=== PATIENT | male | born 1945 | race Caucasian/White ===

== ENCOUNTER 2018-02-23 12:18 | Inpatient (IN) | payer OTHER, MEDICARE ==
--- NOTE | 2018-02-23 12:35 | CPEKG ---
Heart Rate: 80 RR Interval: 750 QRSD Interval: 106 QT Interval: 408 QTC Interval: 471 QRS [place]: -5 T Wave [place]: 22 EKG Severity - ABNORMAL ECG - EKG Impression: A-FLUTTER W/ PREDOM 3:1 AV BLOCK, A-RATE 258 Electronically Signed By: Padmaja Melendez 23-Feb-2018 20:35:28
[2018-02-23 13:00] LABS: PLATELET COUNT 170 10^3/uL (150-400)
--- NOTE | 2018-02-23 13:13 | EDPHY ---
H & P Time Seen by Provider: 02/23/18 12:53 HPI/ROS: CHIEF COMPLAINT: Chest pain, shortness of breath HISTORY OF PRESENT ILLNESS: 72-year-old male with a history of CAD, hypertension and recent diagnosis of atrial fibrillation presents with chest pain and shortness of breath. This morning he was sitting at his computer when he developed shortness of breath and a vague chest discomfort on the left side of his chest. The symptoms persisted intermittently throughout the morning and now have completely resolved. The chest pain increased with exertion. No prior similar symptoms. He was diagnosed with atrial fibrillation on 02/12/2018 at an outside facility and placed on Eliquis and diltiazem. He has a follow-up appointment at [facility] on . He has a history of coronary artery disease and had a stent placed. The only symptom prior to stent placement was tachycardia. REVIEW OF SYSTEMS: Constitutional: No fever, no chills Eyes: No visual changes ENT: No sore throat Respiratory: No cough Gastrointestinal: No nausea, no vomiting, no abdominal pain Genitourinary: no dysuria Musculoskeletal: No leg pain or swelling Skin: No rash Neurological: No headache, no weakness Psychiatric: No anxiety Past Medical/Surgical History: Atrial fibrillation, on Eliquis Hypertension Diabetes Coronary artery disease Hyperlipidemia Social History: Lead Mobile Developer: Dr. Javier Smoking Status: Never smoked Physical Exam: General Appearance: Alert, pleasant Eyes: Pupils equal and round, no conjunctival pallor or injection ENT, Mouth: Mucous membranes moist Neck: Normal inspection Respiratory: Lungs are clear to auscultation Cardiovascular: Regular rate and rhythm, no murmur Gastrointestinal: Abdomen is soft and nontender Neurological: A&O, nonfocal exam Skin: Warm and dry, no rash Extremities: Nontender, no pedal edema Psychiatric: Flat affect Constitutional: Initial Vital Signs Temperature (C) 36.9 C 02/23/18 12:24 Heart Rate 84 02/23/18 12:24 Respiratory Rate 20 02/23/18 12:24 Blood Pressure 143/92 H 02/23/18 12:24 O2 Sat (%) 94 02/23/18 12:24 O2 Delivery Mode Nasal Cannula O2 (L/minute) 3 Allergies/Adverse Reactions: aspirin Allergy (Verified 02/23/18 12:23) GI irritation NSAIDS Allergy (Mild, Uncoded 07/21/14 13:44) Other-Enter Comments Home Medications: Medication Instructions Recorded Acetaminophen [Tylenol 325mg (*)] 325 mg PO DAILY PRN 02/23/18 Allopurinol [Allopurinol 100 MG 100 mg PO BID 02/23/18 (*)] Atorvastatin Calcium [Lipitor 20 20 mg PO DAILY18 02/23/18 mg (*)] Gemfibrozil [Lopid 600 MG (*)] 600 mg PO BIDAC 02/23/18 Multivitamins [Multivitamin (*)] 1 each PO DAILY 02/23/18 metFORMIN HCL [Glucophage 1000 mg] 1,000 mg PO BIDMEAL 02/23/18 Apixaban [Eliquis] 5 mg PO BID #60 tab 02/25/18 Losartan Potassium [Cozaar 25 mg 25 mg PO DAILY #30 tab 02/25/18 (*)] Pantoprazole Sodium [Protonix 40mg 40 mg PO DAILY #30 tab 02/25/18 (*)] Medical Decision Making - Diagnostics EKG Interpretation: EKG interpreted by me reveals atrial flutter, ventricular rate 80, no ST or T segment changes. Imaging Results: Chest X-Ray 02/23/18 12:56 Impression: Hypoventilation and minimal airways disease. No pneumonia. Imaging: I viewed and interpreted images myself ED Course/Re-evaluation: This patient presents with chest pain and shortness of breath, concerning for acute coronary syndrome in a patient with multiple risk factors. Stat EKG reveals atrial flutter, with a controlled rate and no ischemic changes. Pt asymptomatic now. Doubt PE, given anticoagulation and atypical sx. CXR reveals no evidence of pneumonia or PTX; mediastinum normal, dissection considered, but unlikely. Initial troponin normal. Pt remains asymptomatic and in atrial flutter. Will admit for further cardiac evaluation. Consider cardioversion during hospitalization. The hospitalist service was consulted for admission. Dr. Kelle Lal was consulted from [facility] and will see the patient in the hospital. Differential Diagnosis: Differential diagnosis includes though it is not limited to pneumonia, pneumothorax, pulmonary embolism, aortic dissection, pericarditis, acute coronary syndrome. - Data Points Laboratory Results: Laboratory Results 02/24/18 03:20 02/24/18 03:20 Medications Given: Discontinued Medications Allopurinol (Allopurinol) 100 mg PO BID BLAKE Stop: 08/22/18 20:59 Last Admin: 02/25/18 08:48 Dose: 100 mg Apixaban (Eliquis) 5 mg PO BID BLAKE Stop: 08/22/18 20:59 Last Admin: 02/25/18 08:47 Dose: 5 mg Apixaban (Eliquis) 5 mg PO ONCE ONE Stop: 02/24/18 13:31 Last Admin: 02/24/18 13:40 Dose: 5 mg Atorvastatin Calcium (Lipitor) 20 mg PO DAILY18 [facility] Stop: 08/22/18 17:59 Last Admin: 02/24/18 18:59 Dose: 20 mg Atropine Sulfate (Atropine 1 Mg/10 Ml Syringe) 1 mg IVP ONCALL ONE Stop: 02/23/18 18:02 Last Admin: 02/23/18 18:25 Dose: Not Given Atropine Sulfate (Atropine 1 Mg/10 Ml Syringe) 1 mg IVP ONCALL ONE Stop: 02/24/18 09:01 Last Admin: 02/24/18 12:43 Dose: Not Given Diltiazem HCl (Cardizem Immediate Release) 120 mg PO TID@0600,1400,2100 [facility] Stop: 08/22/18 15:14 Last Admin: 02/24/18 05:24 Dose: 120 mg Docusate Sodium (Colace) 100 - 200 mg PO HS PRN PRN Reason: Constipation Stop: 08/23/18 20:59 Last Admin: 02/24/18 21:16 Dose: 100 mg Gemfibrozil (Lopid) 600 mg PO BIDAC BLAKE Stop: 08/22/18 17:29 Last Admin: 02/25/18 08:48 Dose: 600 mg Sodium Chloride (Ns) 500 mls @ 0 mls/hr IV ONCALL ONE PRN Reason: TKO Stop: 02/23/18 18:02 Last Admin: 02/23/18 18:25 Dose: Not Given Sodium Chloride (Ns) 500 mls @ 0 mls/hr IV ONCALL ONE PRN Reason: TKO Stop: 02/24/18 09:01 Last Admin: 02/24/18 12:44 Dose: Not Given Dopamine HCl/Dextrose (Dopamine 1600 Mcg/Ml (Premix)) 250 mls @ 0 mls/hr IV CONT BLAKE; Titrate PRN Reason: Protocol Stop: 08/23/18 12:59 Last Admin: 02/24/18 12:58 Dose: 250 mls Insulin Human Lispro (Humalog Lispro) 0 unit SC TIDMEAL [facility] PRN Reason: Protocol Stop: 08/22/18 17:59 Last Admin: 02/25/18 08:48 Dose: 2 units Losartan Potassium (Cozaar) 25 mg PO DAILY [facility] Stop: 08/23/18 08:59 Last Admin: 02/24/18 08:32 Dose: 25 mg Metoprolol Tartrate (Lopressor) 25 mg PO BID [facility] Stop: 08/22/18 20:59 Last Admin: 02/24/18 08:31 Dose: 25 mg Multivitamins (Tab-A-Kain) 1 each PO DAILY [facility] Stop: 08/23/18 08:59 Last Admin: 02/25/18 08:48 Dose: 1 each Pantoprazole Sodium (Protonix) 40 mg PO DAILY [facility] Stop: 08/23/18 08:59 Last Admin: 02/25/18 08:48 Dose: 40 mg Departure - Departure Disposition: [facility] Inpatient Acute Clinical Impression: Chest pain Qualifiers: Chest pain type: precordial pain Qualified Code(s): R07.2 - Precordial pain Atrial flutter Qualifiers: Atrial flutter type: typical Qualified Code(s): I48.3 - Typical atrial flutter Condition: Fair
[2018-02-23] MEDS ORDERED: ACETAMINOPHEN 325 MG TAB PO PRN (14:36)
[2018-02-23] MEDS ORDERED: ONDANSETRON DISINTEGRATING 4 MG TAB PO PRN (14:36)
[2018-02-23] MEDS ORDERED: ONDANSETRON 4 MG/2 ML VIAL IVP PRN (14:36)
[2018-02-23] MEDS ORDERED: INDOMETHACIN 25 MG CAP PO PRN (14:42)
[2018-02-23] MEDS ORDERED: D50W 25 GM/50 ML SYR IVP PRN (14:47)
--- NOTE | 2018-02-23 15:29 | GHP ---
[f rep st] HISTORY AND PHYSICAL DATE OF ADMISSION: 02/23/2018 CHIEF COMPLAINT: Shortness of breath and chest pain. HISTORY OF PRESENT ILLNESS: This is a 72-year-old male with a history of coronary artery disease, as well as a recent diagnosis of aflutter, who presents with shortness of breath and chest pain. On [facility] 21, 11 days prior to presentation, he noticed that his heart rate monitor showed that his heart r ate was in the 140s. He was in [place] at that time. Because of this, he presented to the ED the re. They found him to be in aflutter. He was started on Eliquis as well as diltiazem. He had previ ously been on metoprolol, this dose was reduced. He had also been on losartan, this dose was also re duced. They did not do a cardioversion at that time. He was discharged, came home, has a followup a ppointment in [address] Conner. This morning, he noticed a dull ache in his chest when he wa s going to the bathroom. He does not describe this as pressure. It has resolved now. He also felt short of breath. He thus presented to the emergency department. He had a stent placed in 2003 for w hat he describes as tachycardia. He did not have any angina at that time. PAST MEDICAL/SURGICAL HISTORY: 1. Coronary artery disease, status post stent in 2003. 2. Hypertension. 3. Gout. 4. Prediabetes on metformin. 5. Hyperlipidemia. 6. Right TKA. 7. Bilateral rotator cuff surgery. 8. Appendectomy. MEDICATIONS: Please see medication reconciliation. ALLERGIES: To aspirin and NSAIDs although I note that he is on Indocin as needed. FAMILY HISTORY: Multiple members of his family of MIs. SOCIAL HISTORY: Drinks wine nightly. He is accompanied by his . He spent half of his time in [employer] and half in [employer] REVIEW OF SYSTEMS: A 10-point review of systems is conducted and is negative except per HPI. PHYSICAL EXAM: VITAL SIGNS: Blood pressure 138/81, heart rate 86, respiration rate 19, saturating 9 2% on room air, temperature 36.9. GENERAL: Patient is a pleasant man who is resting comfortably. N o acute distress. HEENT shows him to be normocephalic, atraumatic. CARDIOVASCULAR: Showed him to b e irregularly irregular. There are no murmurs, rubs, or gallops. PULMONARY: Lungs clear to auscult ation bilaterally. ABDOMEN: Soft, nontender, nondistended. SKIN: No rash. : No Elam. NEUROLOG IC: Shows him to be alert and oriented x3. He is moving all extremities. PSYCHIATRIC: Shows yusuf l mood and affect. LABS: CBC is normal. Basic metabolic panel is normal. Troponin is negative. BNP is 146, glucose i s 221. DATA: 1. I discussed this with Dr. Pinto. He will see the patient in consultation. 2. I personally viewed and interpreted his chest x-ray. This shows no focal infiltrates. 3. I personally viewed and interpreted his EKG. This shows atrial flutter with a 3-1 block. There a re no acute ischemic changes. IMPRESSION AND PLAN: 72-year-old man admitted with chest pain and aflutter. 1. Chest pain: Concerning for angina. He does have a new arrhythmia. Cardiology has been consulte d. Echocardiogram has been ordered. Will trend his troponins. Will monitor him on telemetry. Furt her ischemic evaluation per Cardiology. 2. Atrial flutter: He is currently rate controlled. Will continue his diltiazem, metoprolol, Eliqu is. 3. Hypertension: We will continue his antihypertensives. 4. Gout: Continue his lisinopril. 5. Prediabetes: Hold his metformin in the anticipation that he may receive contrast and start him o n sliding scale insulin. 6. Hyperlipidemia: Statin and gemfibrozil. 7. Code status is full. 8. Venous thromboembolism risk is low, we will continue his Eliquis. /[id number]/MODL
[2018-02-23] MEDS: DILTIAZEM 60 MG TAB PO SCH ×2 (15:33→21:18)
--- NOTE | 2018-02-23 16:06 | ECHO ---
[email or web address] [address] [address] Main: [phone] Fax: [email or web address] Echocardiogram Name: GEOFFREY CRUMP MR#: [id number] Study Date: 02/23/2018 Study Time: 03:05 PM Date of : 1945 Age: 72 year(s) Height: 182.9 cm (72 in.) Weight: 122.47 kg (270 lb.) BSA: 2.42 m2 Gender: Male Examination: Echo Indication: A FIB, Chest Pain Image Quality: Adequate Contrast: Requested by: Gregoria Murillo BP: 140 mmHg/96 mmHg Heart Rate: Rhythm: Atrial fibrillation Indication: A FIB, Chest Pain Procedure Staff Building Carpenter: Dahlia Weaver RDCS Reading Physician: Aba Pinto MD Requesting Provider: Conclusions: Normal size left ventricle. Low normal left ventricular systolic function. The ejection fraction is estimated to be 50-55 %. No regional wall motion abnormality. Normal RV function. The left atrium is mildly dilated. The right atrium is mildly dilated. The pulmonary artery pressure is normal. The IVC is normal sized. No pericardial effusion. Measurements: Chambers Valvular Assessment AV/MV Valvular Assessment TV/PV Normal Normal Normal Name Value Range Name Value Range Name Value Range Ao Irish (2D): 3.2 cm (1.4 cm-2.6 AV meanP mmHg ( - ) TR Vmax: 2.39 mm/s ( - ) cm) LVOT Vmax: 0.93 m/s (0.7 m/s-1.1 TR PGmax: 23 mmHg ( - ) IVSd (2D): 0.9 cm (0.6 cm-1.1 m/s) syst. PAP: 28 mmHg ( - ) cm) QUANG (VTI): 2.0 cm ( - ) PV Vmax: 1.02 m/s (0.6 m/s-0.9 LVDd (2D): 5.2 cm (4.2 cm-5.9 MV E Vmax: 0.94 m/s ( - ) m/s) cm) MV PHT: 0.053 s ( - ) PV PGmax: 4 mmHg ( - ) LVDs (2D): 3.6 cm (2.1 cm-4 MVA (PHT): 4.2 s ( - ) cm) LVPWd (2D): 1.0 cm (0.6 cm-1 cm) LVOTd 2.0 cm 2.0 cm mm LVEF (BP): 48 % (>=55 %) EF Range: 50-55 % RVDd(2D): 3.5 cm (1.9 cm-3.8 cmmm) Patient: GEOFFREY CRUMP Study Date: 02/23/2018 Page 1 of 2 03:05 PM Continued Measurements: Chambers Valvular Assessment AV/MV Valvular Assessment TV/PV Name Value Name Value Name Value LADs: 4.1 cm MV E/E' Septal: 8.50 CVP (est.): 5 mmHg LADs Lon.4 cm MV E/E' Lateral: 9.60 LA Area: 25.3 cm2 LA Volume: 91 ml LA Volume Index: 37.6 ml/m2 RA Area: 20.7 cm2 Additional Vessels Name Value Ao Ascendin.4 cm Findings: Left Ventricle: Normal size left ventricle. No LV hypertrophy. Low normal left ventricular systolic function. The ejection fraction is estimated to be 50-55 %. No regional wall motion abnormality. Unable to assess diastolic dysfunction. Right Ventricle: Normal size right ventricle. Normal RV function. Left Atrium: The left atrium is mildly dilated. Right Atrium: The right atrium is mildly dilated. Mitral Valve: The mitral valve is normal in appearance and function. Mild mitral valve regurgitation is present. No mitral stenosis is present. Aortic Valve: The aortic valve is normal in appearance and function. There is no aortic valve regurgitation. No aortic valve stenosis is present. Tricuspid Valve: The tricuspid valve is normal in appearance and function. Mild tricuspid regurgitation is present. The pulmonary artery pressure is normal. Right ventricular systolic pressure measures 28mmHg. Pulmonic Valve: The pulmonic valve is normal in appearance and function. Trivial pulmonic valve regurgitation. Aorta: The aorta is normal. Normal size aortic root measuring 3.2 cm. Normal size ascending aorta measuring 3.4 cm. IVC: The IVC is normal sized. Pericardium: No pericardial effusion. (No Signature Object) Patient: GEOFFREY CRUMP Study Date: 02/23/2018 Page 2 of 2 03:05 PM [id number]
[2018-02-23] MEDS: ATORVASTATIN CALCIUM 20 MG TAB PO SCH (17:46)
[2018-02-23] MEDS: GEMFIBROZIL 600 MG TAB PO SCH (17:46)
[2018-02-23] MEDS: INSULIN LISPRO 100 UNIT/ML SC SCH (17:47)
[2018-02-23] MEDS ORDERED: ATROPINE SULFATE 1 MG/10 ML SYR IVP ONE (18:01)
[2018-02-23] MEDS ORDERED: NS 500 ML IV ONE (18:01)
[2018-02-23 18:53] LABS: INR 1.08 (0.83-1.16); PROTIME(PATIENT) 14.2 SEC (12.0-15.0)
[2018-02-23] MEDS: METOPROLOL TARTRATE 25 MG TAB PO SCH (21:17)
[2018-02-23] MEDS: ALLOPURINOL 100 MG TAB PO SCH (21:18)
--- NOTE | 2018-02-23 22:16 | GCON ---
[f rep st] CONSULTATION CARDIOLOGY CONSULTATION. DATE OF CONSULTATION: 02/23/2018 REFERRING PHYSICIAN: Zackery Carreno MD INDICATION FOR CONSULTATION: Chest pain and atrial fibrillation. HISTORY OF PRESENT ILLNESS: The patient is a pleasant 72-year-old gentleman well known to [facility] with a known history of coronary artery disease with previous PCI to the right coronary artery in 2003, hypertension, hyperlipidemia, type 2 diabetes, sleep apnea, peptic ulcer disease, and obesity who was in his usual state of health until approximately 1 week ago while in [place] he was found to be in atrial fibrillation on February 12, 2018. He discovered he was in atrial fibrillation when his Apple watch alarmed and stated he had achieved his target heart rate for the day while at rest. He was found to be in atrial fibrillation with rates in the 120s. He had no symptoms of chest pain, chest pressure, shortness of breath, palpitations, dizziness, lightheadedness, near-syncope, or syncope associated with the onset of atrial fibrillation. He states that if it was not for his Apple watch he would have no indication that he was in atrial fibrillation. His workup at a hospital in [place] included an echocardiogram. He did not undergo cardioversion or further risk stratification for coronary artery disease , and he was discharged home on Eliquis 5 mg p.o. b.i.d. and diltiazem 120 mg once daily. Of note, his dose of diltiazem at discharge was increased from 120 mg once daily to 120 mg t.i.d. His [id number] score is 4. The patient and his returned after a 2-month trip to [place] and [place] to [place] yesterday morning at around 9:30 in the morning. He states that this morning he began to develop increased symptoms of shortness of breath and dyspnea on exertion. He also developed an atypical dull chest discomfort which he describes as a 0.5/10 left-sided discomfort that he describes as being worse with exertion, improved with rest, but also beginning initially at rest. He denied any associated nausea or vomiting. He denied complaints of palpitations, dizziness, lightheadedness, or syncope. With the onset of these symptoms, it prompted him to seek medical attention at [facility]'s Emergency Department. He was found to be in atrial fibrillation with rates ranging from 80 to low 100s. He has been compliant with diltiazem 120 mg t.i.d. and Eliquis 5 mg p.o. b.i.d. Currently, at the time of my exam, he is resting comfortably and is pain free and has no complaints of shortness of breath and in atrial fibrillation on telemetry at 82 beats per minute. He did undergo an exercise nuclear stress test on March 28, 2016. El treadmill score of 9. He had no symptoms with exertion. Nuclear images demonstrated no evidence of ischemia with normal left ventricular function. Please note that during his hospitalization in [place] his losartan/ hydrochlorothiazide was discontinued as well as his clopidogrel. His metoprolol was also decreased from 50 mg p.o. b.i.d. to 25 mg p.o. b.i.d. He denies any bleeding issues with the onset of Eliquis. He does have a history of peptic ulcer disease and GI bleeding while on aspirin in the past. REVIEW OF SYSTEMS: Otherwise negative on a 10-point review of systems other than what was noted above. PAST MEDICAL HISTORY: 1. Coronary artery disease with PCI to the RCA in 2003. No evidence of ischemia on nuclear stress test in March of 2016. 2. Hypertension. 3. Hyperlipidemia. 4. Type 2 diabetes. 5. Obstructive sleep apnea compliant with CPAP. 6. Obesity. 7. Peptic ulcer disease. PAST SURGICAL HISTORY: Appendectomy at age 14, bilateral rotator cuff surgery in 2003 with repeat surgery in 2012, and bilateral knee replacements approximately 3 years ago. MEDICATIONS ON ADMISSION: Eliquis 5 mg p.o. b.i.d.; diltiazem 120 mg p.o. t.i.d.; atorvastatin 20 mg daily; gemfibrozil 600 mg p.o. b.i.d.; metoprolol tartrate 25 mg p.o. b.i.d.; metformin 1000 mg p.o. b.i.d.; allopurinol 100 mg p.o. b.i.d.; indomethacin 25 mg p.o. daily p.r.n. gout; multivitamin; Protonix 40 mg daily. ALLERGIES: To medications aspirin and NSAIDs. SOCIAL HISTORY: He drinks approximately 2 glasses of wine per night. He is a lifelong nonsmoker. He works in the [employer] industry. He is and lives in [place]. He has just celebrated his 50th wedding anniversary with his . He has 2 children who live in the [place] area. FAMILY HISTORY: Notable for coronary artery disease. PHYSICAL EXAMINATION: VITAL SIGNS: Blood pressure 140/96, heart rate of 89 in atrial fibrillation, oxygen saturation is 92% on room air, respiratory rate of 18, temperature 37.1. GENERAL: He is awake, alert, oriented, appropriate. No apparent distress. NECK: There is no evidence of JVP or carotid bruits. LUNGS : Clear to auscultation bilaterally. CARDIAC: S1, S2. Irregularly, irregular. There is a 1/6 systolic murmur at the LV apex. The apex is not displaced. ABDOMEN: Obese, soft, nontender. Abdominal aorta is nonpalpable. EXTREMITIES: There is no evidence of cyanosis, clubbing or edema. He has 2+ dorsalis and posterior tibial pulses bilaterally. LABORATORY DATA: White blood cell count 5.35, hemoglobin 14.9, hematocrit 42.9 , platelets 170. Sodium 140, potassium 4.5, chloride 101, bicarb 25, BUN 12, creatinine 0.8, glucose 221. Troponin is less than 0.012. BNP of 146. Chest x -ray demonstrated no evidence of pneumonia. ECG demonstrated atrial fibrillation at 80 beats per minute with no evidence of ischemic changes or acute infarction. Echocardiogram demonstrates LVEF of 50% to 55% with no regional wall motion abnormality, normal right ventricular function, mild biatrial enlargement, no significant valvular disease, normal pulmonary pressures with RV systolic pressure of 28 mmHg. Previous nuclear stress test in March of 2016 with no evidence of ischemia. El treadmill score of 9. IMPRESSION: 1. Atypical chest discomfort. 2. Shortness of breath and dyspnea on exertion. 3. New diagnosis of atrial fibrillation on February 12, 2018 with [id number] score of 4. 4. Coronary artery disease with percutaneous coronary intervention to the right coronary artery in 2003. 5. Hypertension. 6. Hyperlipidemia. 7. Obstructive sleep apnea. 8. Morbid obesity. 9. Peptic ulcer disease with history of ulcer with aspirin. SUMMARY: The patient is a pleasant 72-year-old gentleman with newly diagnosed atrial fibrillation who returns to the [place] area after being away for 2 months traveling to [place] and [place] at much lower altitudes who was diagnosed with atrial fibrillation on February 12, 2018. He presented to [facility] today with complaints of shortness of breath, dyspnea on exertion, and atypical chest discomfort that was exacerbated with exertion. ECG and troponin were initially unremarkable, and he is pain free at rest with normal nuclear stress test within the last 2 years without evidence of ischemia. Of note, he does state he had a radial artery catheterization attempted from the right radial artery in 2003 which was unsuccessful secondary to his radial artery anatomy. In the absence of symptoms and relatively controlled rate of atrial fibrillation with [id number] score of 4, I would recommend he continue his Eliquis and remain on his current dose of diltiazem. I would recommend serial cardiac enzymes and keeping the patient n.p.o. after midnight tonight for possible ZAC cardioversion. If these troponins elevate, I would consider left heart catheterization. PLAN: 1. Continue diltiazem 120 mg p.o. t.i.d. 2. Continue Eliquis 5 mg p.o. b.i.d. 3. N.p.o. after midnight. 4. Serial cardiac enzymes. 5. If troponins are negative x3, plan for ZAC-guided cardioversion and outpatient further risk stratification. 6. If he does have continued chest discomfort or troponin elevation, we will consider left heart catheterization, which would require holding anticoagulation secondary to the need to perform left heart catheterization from the groin given unsuccessful attempt in the past through the radial artery. 7. We will continue to follow along with patient care. Thank you for this consultation. 45 min spent coordinating care. /[id number]/MODL PAOLA
[2018-02-23] MEDS: APIXABAN 5 MG TAB PO SCH (22:25)
[2018-02-24 04:29] LABS: PLATELET COUNT 171 10^3/uL (150-400)
[2018-02-24] MEDS: DILTIAZEM 60 MG TAB PO SCH (05:24)
[2018-02-24] MEDS: METOPROLOL TARTRATE 25 MG TAB PO SCH (08:31)
[2018-02-24] MEDS: ALLOPURINOL 100 MG TAB PO SCH ×2 (08:31→21:16)
[2018-02-24] MEDS: GEMFIBROZIL 600 MG TAB PO SCH ×2 (08:31→19:00)
[2018-02-24] MEDS: PANTOPRAZOLE SODIUM 40 MG TAB PO SCH (08:31)
[2018-02-24] MEDS: MULTIVITAMINS 1 EACH TAB PO SCH (08:32)
[2018-02-24] MEDS: INSULIN LISPRO 100 UNIT/ML SC SCH ×4 (08:32→19:00)
[2018-02-24] MEDS ORDERED: NS 500 ML IV ONE (09:00)
[2018-02-24] MEDS ORDERED: ATROPINE SULFATE 1 MG/10 ML SYR IVP ONE (09:00)
[2018-02-24] MEDS ORDERED: LOSARTAN POTASSIUM 25 MG TAB PO SCH (09:00)
--- NOTE | 2018-02-24 09:45 | PDHPUP ---
History & Physical Update H&P update statement: This history and physical update is based on an assessment of the patient which was completed after admission or registration (within 24 hours), but prior to the surgery/procedure. H&P update: H&P reviewed & patient examined, no change in patient's condition since H&P completed
[2018-02-24] MEDS ORDERED: APIXABAN 5 MG TAB ONE (10:26)
[2018-02-24] MEDS: APIXABAN 5 MG TAB PO SCH (10:28)
--- NOTE | 2018-02-24 10:39 | PDANEPAE ---
ANE Past Medical History - Pulmonary History Hx Oxygen in Use at Home: No Hx Sleep Apnea: Yes Sleep Apnea Screening Result - Last Documented: Positive - Endocrine History Hx Diabetes: Yes ANE Review of Systems Review of Systems: ANE Patient History - Allergies Allergies/Adverse Reactions: aspirin Allergy (Verified 02/23/18 12:23) GI irritation NSAIDS Allergy (Mild, Uncoded 07/21/14 13:44) Other-Enter Comments - Home Medications Home Medications: Acetaminophen [Tylenol 325mg (*)] 325 mg PO DAILY PRN 02/23/18 [Last Taken Unknown] Allopurinol [Allopurinol 100 MG (*)] 100 mg PO BID 02/23/18 [Last Taken 02/23/18 ] Apixaban [Eliquis] 5 mg PO BID 02/23/18 [Last Taken 02/23/18] Atorvastatin Calcium [Lipitor 20 mg (*)] 20 mg PO DAILY18 02/23/18 [Last Taken 02/22/18] Diltiazem [Cardizem] 120 mg PO TID@06,14,21 02/23/18 [Last Taken 02/23/18 06:00] Gemfibrozil [Lopid 600 MG (*)] 600 mg PO BIDAC 02/23/18 [Last Taken 02/23/18] Indomethacin [Indocin 25 mg (*)] 50 mg PO DAILY PRN 02/23/18 [Last Taken Unknown ] Losartan Potassium [Cozaar 25 mg (*)] 25 mg PO DAILY 02/23/18 [Last Taken ] Metoprolol Tartrate [Lopressor 25 mg (*)] 25 mg PO BID 02/23/18 [Last Taken 01/11] Multivitamins [Multivitamin (*)] 1 each PO DAILY 02/23/18 [Last Taken Unknown] Pantoprazole Sodium [Protonix 40mg (*)] 40 mg PO DAILY 02/23/18 [Last Taken 01/11] metFORMIN HCL [Glucophage 1000 mg] 1,000 mg PO BIDMEAL 02/23/18 [Last Taken 01/11] - NPO status NPO Since - Liquids (Date): 02/24/18 NPO Since - Liquids (Time): 00:00 NPO Since - Solids (Date): 02/24/18 NPO Since - Solids (Time): 00:00 - Smoking Hx Smoking Status: Never smoked ANE Labs/Vital Signs - Labs Result Diagrams: 02/24/18 03:20 02/24/18 03:20 - Vital Signs Blood Pressure: 116/87 Heart Rate: 80 Respiratory Rate: 16 O2 Sat (%): 91 Height: 182.88 cm Weight: 122.47 kg ANE Physical Exam - Airway Neck exam: FROM, increased neck circumference, short neck Mallampati Score: Class 2 - Pulmonary Pulmonary: no respiratory distress, no rales or rhonchi, clear to auscultation - Cardiovascular Cardiovascular: irregularly irregular - ASA Status ASA Status: IV ANE Anesthesia Plan Anesthesia Plan: GA with mask
[2018-02-24] MEDS ORDERED: MIDAZOLAM 2 MG/2 ML VIAL ONE (10:43)
[2018-02-24] MEDS ORDERED: PROPOFOL 200 MG/20 ML VIAL ONE ×2 (10:43)
[2018-02-24] MEDS ORDERED: PERFLUTREN LIPID MICROSPHERES 1.1 MG/ML VIAL IV ONE (11:00)
[2018-02-24] MEDS ORDERED: ATROPINE SULFATE 1 MG/10 ML SYR ONE ×2 (11:13→14:00)
--- NOTE | 2018-02-24 11:43 | PDTEE1 ---
ZAC Cardioversion Procedure Procedure: electrical cardioversion, transesophageal echo Indications: atrial fibrillation Consent: signed and in chart Anticoagulation: eliquis Procedural Details: Sedation was provided by the anesthesia service. Pads were placed in anterior- posterior position. ZAC probe was advanced and standard images obtained. There is no evidence of left atrial or left atrial appendage thrombus. Proceeded with cardioversion. Results: other (initial rhythm asystole and sinus bradycardia with periods of junctional bradycardia. No carotid pulse was palpable. CPR initiated. Atropine 1 mg, epinephrine 1 mg, and an additional atropine 1 mg given with ROSC and HTN. Rhythm AF to sinus tachycardia to NSR. BP improved. IVF given. One additional peripheral IV access obtained. Patient mentating normally, complains of throat pain. updated. Transfer to ICU.) Patient Problems: Problems Problem Status Onset Chest pain Acute Atrial flutter Acute
--- NOTE | 2018-02-24 11:44 | POSTANESTH ---
Post Anesthetic Evaluation Cardiovascular Status: Normal, Stable, Other, See Comment Respiratory Status: Normal, Stable Level of Consciousness/Mental Status: Can Participate in Eval Pain Control: Adequate, Prn Tx Ordered Nausea/Vomiting Control: Adequate, Prn Tx Ordered Complications Possibly Related to Anesthesia: None Noted (Patient was servery bradycardic and hypotensive ( no pulse felt). Received chest compressions for less than a minute but he was breathing spontaneously throughout the case. Now, awake, alert, oriented)
--- NOTE | 2018-02-24 12:10 | PDCODEBLUE ---
Janae Craven Note The patient underwent an uncomplicated ZAC. Because there is no intracardiac thrombus we proceeded with synchronized cardioversion. The patient received a single 200 joule synchronized shock. His initial rhythm post cardioversion was asystole. We could not feel carotid pulse. CPR was initiated. He was breathing spontaneously and receiving bag mask support from Dr. Bustamante of Anesthesiology. He intermittently had QRS complexes on telemetry, sometimes preceded by P wave, sometimes junctional. Because we still could not feel pulse he received 1 mg of atropine, 1 mg of epinephrine, and an additional 1 mg of atropine. Janae craven was called. CPR was continued. He received a 2nd peripheral IV from the ER nursing staff. A 2nd anesthesiologist arrived for airway support. The patient continued to breathe spontaneously. At this point, he did have a palpable carotid and femoral pulse, and therefore CPR was stopped. His neck is blood pressure was elevated at 2 20/113, due to atropine and epinephrine. His rhythm at this point was rapid atrial fibrillation which quickly resolved to sinus tachycardia and then sinus rhythm. The patient on was at this point awake and mentating normally. He only complained of throat pain but no chest pain. He had no recollection of events. Blood pressure at this point was now in the 90s. He was given on wide-open IV fluids. Report was given to ICU and he was taken there for further on monitoring. He did have a chest x-ray which shows no evidence of pneumothorax or obvious rib fracture. His EKG shows sinus rhythm without ischemia.
[2018-02-24] MEDS ORDERED: DOPamine/DEXTROSE/250 ML BAG IV ONE (12:23)
[2018-02-24] MEDS ORDERED: ALTEPLASE 2 MG VIAL IVP PRN (12:35)
--- NOTE | 2018-02-24 12:39 | HOSPPROG ---
Hospitalist Progress Note Assessment/Plan: # code blue - asystole/PEA arrest - possibly d/t CCB and BB after cardioversion - neuro intact # hypotension - myocardial stunning? may need repeat echo today - dopamine gtt, place PICC # bradycardia/junctional rhythm, intermittent NSR - dopamine, hold wily blockers # a-flutter s/p DVVC - cont eliquis # CAD s/p stent in 2003 - eliquis, statin # gout - allopurinol # htn - hold meds # pre-DM - hold metformin, on SSI Subjective: episode of asystole, then PEA post cardioversion s/p CPR, atropine 2mg and epi 1mg with ROSC; currently mentating well, has some rib pain Objective: Vital Signs Temp Pulse Resp BP Pulse Ox 36.7 C 80 16 116/87 H 91 L 02/24/18 07:32 02/24/18 10:39 02/24/18 10:39 02/24/18 10:39 02/24/18 10:39 Laboratory Results 02/24/18 03:20 02/24/18 03:20 02/23/18 02/24/18 02/25/18 05:59 05:59 05:59 Intake Total 400 Balance 400 PT 14.2 SEC (12.0-15.0) 02/23/18 18:36 INR 1.08 (0.83-1.16) 02/23/18 18:36 35 minutes floor/critical care time managing hypotension post arrest - Physical Exam Constitutional: uncomfortable Cardiovascular: no murmur, rub, or gallop (distant S1S2), bradycardia Respiratory: no respiratory distress, no rales or rhonchi Gastrointestinal: soft, non-tender abdomen, no palpable masses ICD10 Worksheet Patient Problems: Problems Problem Status Onset Chest pain Acute Atrial flutter Acute
--- NOTE | 2018-02-24 12:39 | CPEKG ---
Heart Rate: 88 RR Interval: 682 P-R Interval: 192 QRSD Interval: 104 QT Interval: 388 QTC Interval: 470 P [place]: 15 QRS [place]: 8 T Wave [place]: 14 EKG Severity - NORMAL ECG - EKG Impression: SINUS RHYTHM Electronically Signed By: Carlos Fenton 24-Feb-2018 13:23:05
[2018-02-24] MEDS ORDERED: APIXABAN 5 MG TAB PO ONE (13:30)
[2018-02-24] MEDS ORDERED: EPINEPHrine 1 MG/10 ML SYR IVP ONE (14:00)
--- NOTE | 2018-02-24 14:11 | ECHO ---
[email or web address] [place] [id number] Main: [phone] Fax: Transesophageal Echocardiography Name: GEOFFREY CRUMP MR#: [id number] Study Date: 02/24/2018 Study Time: 10:45 AM Date of : 1945 Age: 72 year(s) Height: ( ) Weight: ( ) BSA: Gender: Male Examination: ZAC Indication: Pre Cardioversion Image Quality: Contrast: Requested by: Zackery Carreno Heart Rate: Rhythm: BP: / Procedure Staff Glaze Grinder: Tristan Pulido ROXANA Reading Physician: Kelle Lal MD Requesting Provider: Aba Pinto MD ZAC Exam Details Conclusions: The EF is estimated at 35-40%. Mild to moderate global hypokinesis. An agitated saline study was performed and was negative for intracardiac shunting. No thrombus in left appendage. Definity imaging enhancement was utilized and there is no evidence of MATEO thrombus. Interatrial septum is lipomatous. Mild mitral valve regurgitation is present. Measurements: Chambers Valvular Assessment AV/MV Valvular Assessment TV/PV Normal Normal Normal Name Value Range Name Value Range Name Value Range AV Vmax: 1.16 m/s (1 m/s-1.7 m/s) AV maxP mmHg ( - ) Additional Measurements: Findings: Left Ventricle: The EF is estimated at 35-40%. Mild to moderate global hypokinesis. Left Atrium: An agitated saline study was performed and was negative for intracardiac shunting. Left Atrial Appendage: Patient: GEOFFREY CRUMP Study Date: 02/24/2018 Page 1 of 2 10:45 AM No thrombus in left appendage. Definity imaging enhancement was utilized and there is no evidence of MATEO thrombus. Interatrial septum is lipomatous. Mitral Valve: Mild mitral valve regurgitation is present. Aortic Valve: The aortic valve is tri-leaflet. No aortic valve stenosis is present. There is no significant aortic valve regurgitation. Tricuspid Valve: The tricuspid valve appears normal. Pulmonic Valve: The pulmonic valve is normal in appearance and function. Trivial pulmonic valve regurgitation. l1n (No Signature Object) Patient: GEOFFREY CRUMP Study Date: 02/24/2018 Page 2 of 2 10:45 AM [id number]
--- NOTE | 2018-02-24 15:38 | PDMN ---
Medical Necessity Medical necessity: Change to IP, as of 02/24/18, per MD; los >2 mn for ongoing eval/tx following episode of asystole/PEA arrest post cardioversion s/p CPR/ Code Blue; admit to ICU for further workup/close monitoring & IV Dopamine; hx CAD s/p stent, htn, prediabetes; per progress note & order 02/24/18
--- NOTE | 2018-02-24 16:00 | ASMTCMCOM ---
CM Note CM Note Notes: 72yr old male admitted for SOB, Afib, Aflutter, CP. Has a Hx of CAD S/P stent '04, HTN, Gout, Pre-DM, HLD. Patient coded today and transferred to ICU. CM to follow. Date Signed: 02/24/2018 04:00 PM Electronically Signed By:Steph Haney LCSW
[2018-02-24 18:49] LABS: PLATELET COUNT 173 10^3/uL (150-400)
[2018-02-24] MEDS: ATORVASTATIN CALCIUM 20 MG TAB PO SCH (18:59)
--- NOTE | 2018-02-24 20:09 | GCON ---
[f rep st] CONSULTATION CRITICAL CARE CONSULTATION DATE OF CONSULTATION: 02/24/2018 REASON FOR CONSULTATION: Hypotension following cardiac arrest. HISTORY OF PRESENT ILLNESS: The patient is a 72-year-old who has a history of previous coronary akanksha ry disease, he is status post stenting. He was recently in [place] and [facility] He was started on Eliquis and diltiazem. He returned here and presented to the emerge ncy room with some mild chest pain. He was in atrial flutter/fibrillation. He was admitted and elec tive cardioversion was done today. This was associated with a brief episode of asystole and subseque nt sinus bradycardia without obvious pulses or blood pressure. CPR was initiated. He received atrop ine and epinephrine briefly with return of pulse and blood pressure, responding with tachycardia and hypertension. He was moved to the intensive care unit and placed on dopamine. A PICC line has been requested, however, the patient is questioning whether he needs this. He denies significant chest pa in or shortness of breath at this time. He does have some sternal pain secondary to his arrest and C DC. PAST MEDICAL HISTORY: Remarkable for coronary artery disease, hyperlipidemia, hypertension, and the recent atrial fibrillation. Other medical problems include type 2 diabetes, gout, gastroesophageal reflux. ALLERGIES: Aspirin, nonsteroidals. SOCIAL HISTORY: The patient is with a supportive spouse. Tobacco is negative. Significant alcohol is negative. He does drink caffeine. FAMILY HISTORY: Noncontributory. REVIEW OF SYSTEMS: Negative except as mentioned above. PHYSICAL EXAMINATION: GENERAL: Reveals a gentleman who is overweight. He is not particularly happy about being kept in the hospital. VITAL SIGNS: Latest blood pressure is 90/60, heart rate 70, with an irregular rhythm on the monitor, possible atrial fibrillation versus a sinus arrhythmia with PACs . Respiratory rate is 18. On 3 L, saturations are 95%. He is afebrile. HEENT: Unremarkable for l ymphadenopathy or thyromegaly. Mucous membranes are moist. There is no obvious jugular venous diste ntion, however, he does have a large neck. CHEST: Clear. Breath sounds are diminished at the bases . HEART: Irregular. Heart tones are distant. There is no obvious gallop or significant murmur. A BDOMEN: Obese, soft, and nontender. Bowel sounds are present. EXTREMITIES: Remarkable for trace e akira. SKIN: Without significant rash or lesions. NEUROLOGIC: Intact. DATABASE: Cardiac echo showed a cardiomyopathy with [id number] hypokinesis and an ejection fra ction of approximately 40%. No thrombus was identified. The right side appeared normal. Chest x-ra y on admission showed hypoventilatory changes at the bases. LABORATORY DATA: White blood cell count is 5300, hematocrit 42, platelets 171,000. PT and PTT were normal on admission. Basic metabolic panel is normal with the exception of elevated blood glucoses a round the 200 range. ASSESSMENT: 1. Cardiac arrest with brief cardiopulmonary resuscitation, as described above. This appeared to be secondary to results of his cardioversion and oral medications. There is no evidence of acute ische owen or infarction. 2. Hypotension: He is hypotensive and bradycardic post arrest. He is on dopamine. This is being t itrated up to maintain mean arterial pressures of approximately 65. A central line would be best, ho wever, he is currently refusing a peripherally inserted central catheter line. 3. Atrial fibrillation/flutter, status post cardioversion: If arrhythmias persist, amiodarone may b e indicated. 4. Hypoxemia, mild: No history of underlying lung disease. 5. Hyperglycemia secondary to type 2 diabetes: He is on sliding scale insulin. 6. Anticoagulation: He is on Eliquis. 7. Gastrointestinal prophylaxis: On pantoprazole. PLAN AND RECOMMENDATIONS: The patient will be kept in the intensive care unit. A PICC line has been requested and is appropriate if the patient permits. Blood pressure will be closely followed. Dopa mine will be continued for now at its current rate. If a PICC line is placed, the rate can be increa sed. Beta blockers and diltiazem will be held. His other medications will be continued. Further plans and recommendations will be made based on his progress over the next 12-24 hours. All the above was discussed with the patient and his . /[id number]/MODL
[2018-02-24] MEDS ORDERED: DOCUSATE SODIUM 100 MG CAP PO PRN (21:00)
[2018-02-25 06:45] LABS: PLATELET COUNT 156 10^3/uL (150-400)
[2018-02-25 07:49] VITALS: TEMP 98.9
[2018-02-25] MEDS: APIXABAN 5 MG TAB PO SCH (08:47)
[2018-02-25] MEDS: INSULIN LISPRO 100 UNIT/ML SC SCH (08:48)
[2018-02-25] MEDS: PANTOPRAZOLE SODIUM 40 MG TAB PO SCH (08:48)
[2018-02-25] MEDS: GEMFIBROZIL 600 MG TAB PO SCH (08:48)
[2018-02-25] MEDS: ALLOPURINOL 100 MG TAB PO SCH (08:48)
[2018-02-25] MEDS: MULTIVITAMINS 1 EACH TAB PO SCH (08:48)
[2018-02-25 10:53] VITALS: O2SAT 93
[2018-02-25 10:54] VITALS: BP 116/67; PULSE 71; RESP 19
--- NOTE | 2018-02-25 11:22 | PDCARPN ---
Cardiology Progress Note Assessment/Plan: Assessment/plan: 72-year-old female with coronary disease and history of RCA stenting several years ago, new diagnosis of atrial fibrillation, hypertension, diabetes, sleep apnea treated with CPAP He was admitted February 23 with chest pressure and dyspnea. Troponins were negative. He had a ZAC guided cardioversion on February 24 complicated by a brief asystolic arrest requiring CPR , atropine, epinephrine. He had rapid return of spontaneous circulation and maintained spontaneous breathing throughout. He never required intubation or temporary pacing. He appears to be neurologically intact. He required dopamine until 3 this morning to support his blood pressure but has been off for several hours and isn't currently normal sinus rhythm with normal blood pressure. His echocardiogram today, post cardioversion shows improved ejection fraction now in the normal range. 1. Atrial fibrillation: Currently in sinus rhythm. We have stopped his metoprolol and diltiazem. It is likely that combination of these medications, especially the diltiazem in high dose, contributed to his brief episode of asystole and profound bradycardia post cardioversion. Has tachycardia bradycardia syndrome, and may ultimately require pacemaker. I feel that we should observe him off nodally acting agents for now prior to pacemaker implantation. Continue Eliquis for CHADS2 Vasc score of 4. He will have an outpatient Holter monitor. 2. Hypertension: Did require several hours of dopamine post asystolic event. He is now normotensive. Would restart losartan 25 mg tomorrow morning. Hold diltiazem and metoprolol as detailed above. 3. Coronary disease: His chest discomfort and dyspnea have resolved with zoroastrian of sinus rhythm. Troponins were negative. EKG upon admission and immediately post resuscitation showed no ischemic changes. He will have an outpatient exercise nuclear stress test for further risk stratification. 4. Sleep apnea: He uses CPAP regularly. I suggested that he have a follow-up sleep medicine evaluation to ensure that his sleep apnea is adequately treated, and under treated sleep apnea is not a trigger for his atrial fibrillation. 5. Diabetes: Continue outpatient medical therapy. He is stable for discharge from a cardiovascular standpoint. He will follow up with Dr. Javier after his stress test and Holter monitor. Discussed with Dr. Ricardo and Dr. Alvarado. 02/25/18 11:27 Subjective: He feels well. He has some mild sternal soreness but no anginal quality chest pain. No dyspnea. This symptoms that brought him to the hospital which were chest pressure and dyspnea have resolved. Reviewed/Discussed With: family, hospitalist, other (Dr. Ricardo) Objective: Vital Signs (8 Hrs) Temp Pulse Resp BP Pulse Ox 02/25/18 10:00 71 19 116/67 93 02/25/18 09:00 70 18 126/83 H 93 02/25/18 08:00 67 18 120/70 92 02/25/18 07:00 37.2 C 67 17 109/69 94 02/25/18 06:00 70 15 117/67 94 02/25/18 05:00 74 16 113/69 96 02/25/18 04:55 93 02/25/18 04:00 60 18 116/52 L 96 Intake/Output (24 Hrs) 02/24/18 02/25/18 02/26/18 05:59 05:59 05:59 Intake Total 1030 Output Total 1100 Balance -70 Intake: Oral (ml) 900 IV Infused (ml) 130 DOPamine/DEXTROSE 250 ml 130 @ Titrate IV CONT BLAKE Rx# :[id number] Output: Urine (ml) 1100 Toilet 1100 Other: Number of Stools Toilet 1 No acute distress. Regular rate and rhythm without murmur or gallop Lungs clear about that was not crossed No lower extremity edema Sternum is stable with minimal tenderness to palpation over the left parasternal area. Result Diagrams: 02/25/18 06:25 02/25/18 06:25 EKG: NSR. No ischemic changes Telemetry: NSR, sinus arrhythmia Echocardiogram: Reviewed: normal LVEF with no wall motion abnormality. No pericardial effusion ICD10 Worksheet Patient Problems: Problems Problem Status Onset Chest pain Acute Atrial flutter Acute
--- NOTE | 2018-02-25 12:14 | HOSPPROG ---
Hospitalist Progress Note Assessment/Plan: #CAD: no ischemic EKG changes. Outpatient nuclear stress testing #Atrial fibrillation: s/p ZAC cardioversion. Complicated by asystole and brief CPR. Stop BB, Dilt. Holter outpatient. Eliquis #Prediabetes: metformin #Gout: advised to stop Indomethacin while on Eliquis #Disp: DC today Subjective: sternal pain from CPR. No SOB Objective: Vital Signs Temp Pulse Resp BP Pulse Ox 37.2 C 71 19 116/67 93 02/25/18 07:00 02/25/18 10:00 02/25/18 10:00 02/25/18 10:00 02/25/18 10:00 Laboratory Results 02/25/18 06:25 02/25/18 06:25 02/24/18 02/25/18 02/26/18 05:59 05:59 05:59 Intake Total 1030 Output Total 1100 Balance -70 PT 14.2 SEC (12.0-15.0) 02/23/18 18:36 INR 1.08 (0.83-1.16) 02/23/18 18:36 - Physical Exam Constitutional: no apparent distress Eyes: PERRL Ears, Nose, Mouth, Throat: moist mucous membranes Cardiovascular: regular rate and rhythym Respiratory: no respiratory distress Gastrointestinal: normoactive bowel sounds Genitourinary: No pathak in urethra Skin: warm Musculoskeletal: full muscle strength Neurologic: AAOx3 ICD10 Worksheet Patient Problems: Problems Problem Status Onset Chest pain Acute Atrial flutter Acute
--- NOTE | 2018-02-25 13:12 | GDS ---
[f rep st] DISCHARGE SUMMARY DISCHARGE DIAGNOSES: 1. Chest pain. 2. History of coronary artery disease. 3. Atrial fibrillation. 4. Hypertension. 5. Sleep apnea. 6. Diabetes. 7. Asystole. 8. History of gout. 9. Prediabetes, secondary to hyperlipidemia. HISTORY OF PRESENT ILLNESS: A 72-year-old male with history of hypertension, coronary disease, and recent diagnosis of atrial flutter who presented with shortness of breath and chest pain. On February 11, he noticed his heart rate monitor showed heart rate to 140s. He was in [place] at that time and went to an ER there. They diagnosed him with atrial flutter, was started on Eliquis and diltiazem, and he had been previously on metoprolol. His metoprolol and losartan dose had been reduced there. He was discharged home and to follow up with Dr. Conner in 3 days; however, day of admission, he knows dull ache in his chest when going to the restroom. HOSPITAL COURSE: 1. Chest pain: He was evaluated by Cardiology. This was likely secondary to arrhythmia. This resolved once back in normal sinus rhythm. EKG at admission was negative for ischemic changes. He will have an outpatient exercise nuclear test. 2. Atrial fibrillation: He had a ZAC guided cardioversion on February 24, complicated by a brief asystolic arrest requiring CPR, atropine, and epinephrine. He had return of spontaneous circulation quickly and has maintained normal sinus rhythm since. He did require dopamine briefly. He has tachy-bradycardia syndrome. He may ultimately require pacemaker. Cardiology wants to observe him off AV wily blocking agents. Will discontinue metoprolol and diltiazem. He has a CHADS2-VASc score of 4, so will continue Eliquis and will have an outpatient Holter monitor. 3. Hypertension: He did require dopamine post-asystolic event. We will restart losartan 25 mg tomorrow. Discontinue diltiazem, metoprolol. 4. Sleep apnea. Uses a CPAP regularly. 5. Diabetes. Continue metformin. DISPOSITION: Patient is stable for discharge. DISCHARGE MEDICATIONS: Stop: metoprolol, diltiazem. Refill: Protonix, Eliquis, and losartan. FOLLOW UP: Dr. Javier in 2 weeks. Will need a 24-hour Holter monitor and outpatient nuclear scan. /[id number]/MODL MTDD
--- NOTE | 2018-02-26 09:24 | CPEKG ---
Heart Rate: 77 RR Interval: 779 P-R Interval: 192 QRSD Interval: 112 QT Interval: 412 QTC Interval: 467 P [place]: 24 QRS [place]: 18 T Wave [place]: 4 EKG Severity - ABNORMAL ECG - EKG Impression: SINUS RHYTHM EKG Impression: NONSPECIFIC INTRAVENTRICULAR CONDUCTION DELAY Electronically Signed By: Carlos Fenton 26-Feb-2018 15:24:32
== END 2018-02-25 12:18 | disposition home or self-care (01) | DRG 308 ==
LOC: F2W 14:53 → F2N 02-24 11:47 → OBSVTOIN 02-24 15:07
PROVIDERS: ADMIT Student in an Organized Health Care Education/Training Program; ATTEND Internal Medicine
PROC: 5A12012 Performance of Cardiac Output, Single, Manual (ICD-10-PCS; principal; 2018-02-24)
PROC: 5A2204Z Restoration of Cardiac Rhythm, Single (ICD-10-PCS; principal; 2018-02-24)
PROC: B245ZZ4 Ultrasonography of Left Heart, Transesophageal (ICD-10-PCS; principal; 2018-02-24)
DX: I49.5 Sick sinus syndrome (principal); T46.1X5A Adverse effect of calcium-channel blockers, initial encounter; T44.7X5A Adverse effect of beta-adrenoreceptor antagonists, initial encounter; I46.2 Cardiac arrest due to underlying cardiac condition; I25.10 Atherosclerotic heart disease of native coronary artery without angina pectoris; I48.91 Unspecified atrial fibrillation; I10 Essential (primary) hypertension; G47.33 Obstructive sleep apnea (adult) (pediatric); R73.03 Prediabetes; E78.5 Hyperlipidemia, unspecified; E66.9 Obesity, unspecified; M10.9 Gout, unspecified; Z79.01 Long term (current) use of anticoagulants; Z95.5 Presence of coronary angioplasty implant and graft; Z96.651 Presence of right artificial knee joint; Z87.11 Personal history of peptic ulcer disease
CPT/HCPCS: G0378; J0461; J1265; J1815; J2250; J2704; Q9957

== ENCOUNTER 2018-02-27 10:01 | Emergency (ER) | payer OTHER, MEDICARE ==
--- NOTE | 2018-02-27 10:26 | CPEKG ---
Heart Rate: 62 RR Interval: 968 P-R Interval: 188 QRSD Interval: 102 QT Interval: 408 QTC Interval: 415 P [place]: 14 QRS [place]: -4 T Wave [place]: 24 EKG Severity - ABNORMAL ECG - EKG Impression: SINUS RHYTHM EKG Impression: MULTIPLE ATRIAL PREMATURE COMPLEXES Electronically Signed By: Acacia Linton 27-Feb-2018 22:55:02
[2018-02-27] MEDS ORDERED: OXYCODONE/APAP 5/325 TAB PO ONE (10:42)
--- NOTE | 2018-02-27 10:47 | EDPHY ---
HPI/HX/ROS/PE/MDM Narrative: CHIEF COMPLAINT: Rib pain after sneezing HPI: The patient is an anticoagulated 72 y/o male arriving with his complaining of left-sided peristernal rib pain after sneezing this morning about 3 hours ago. His medical history includes CAD, atrial fibrillation, hypertension, hyperlipidemia, and diabetes. He was admitted here 3 days ago for chest pain following recent diagnosis of atrial flutter. He required ZAC cardioversion while here and had a brief systolic arrest necessitating CPR, atropine, and epinephrine to obtain ROSC. A post-CPR chest x-ray did not show obvious rib fracture or pneumothorax. He was discharged the next day on Eliquis with outpatient cardiology follow up. This morning around 07:30 he sneezed and heard a crack and immediate pain on the left side of his sternum that "sounded just like when I broke my leg." His pain is 7/10 at rest and worse with movement , palpation. Significantly worse with sneezing or coughing. He denies dyspnea, fever, other acute complaints. REVIEW OF SYSTEMS: Aside from elements discussed in the HPI, a comprehensive 10-point review of systems was reviewed and is negative. PMH: CAD, atrial fibrillation - Eliquis, hypertension, hyperlipidemia, diabetes - metformin, sleep apnea - CPAP SOCIAL HISTORY: at bedside. Drinks wine. Prior medical records reviewed including admission notes 02/24/18. PHYSICAL EXAM: General:Patient is alert, in no acute distress. ENT:Eyes are normal to inspection. ENT inspection normal. Neck: Normal inspection. Full range of motion. Respiratory:No respiratory distress. Breath sounds normal bilaterally. Cardiovascular: Regular rate and rhythm. Strong peripheral pulses. Normal cap refill. Chest: Tenderness to left peristernal area. Abdomen:The abdomen is nontender to palpation. There are no peritoneal signs. Back: Normal to inspection. No tenderness to palpation. Skin: Normal color. No rash. Warm and dry. Extremities: Normal appearance. Full range of motion. Neuro: Oriented x3. Normal motor function. Normal sensory function. ED Course: This is a 72 y/o male with cardiac history who recently had a brief systolic arrest during ZAC cardioversion requiring CPR and returns today complaining of [id number] left peristernal rib pain onset after sneezing and worse with movement and palpation. He has left peristernal tenderness on exam and is sitting up due to discomfort. Initial chest x-ray does not show clear cause for patient's pain. Plan for EKG, pain management, and chest CT for better evaluation of his rib pain. 1 tab PO Oxycodone ordered. The 12 lead EKG was interpreted by myself. See hard copy and/or "tracemaster" electronic copy for interpretation. Chest x-ray: nothing acute Chest CT: cartilage fractures left 5-7 ribs. No sign of mediastinal injury or PTX. Reassessed patient and discussed work up. Pain has improved with Percocet. He will be discharged with rib/cartilage fracture care and follow up instructions. Script for Percocet given. Return precautions discussed. He is comfortable with this plan. - Data Points Imaging Results: Imaging Impressions Chest X-Ray 02/27/18 10:10 Impression: 1. Poor inspiration. 2. Calcified granuloma right base and calcified right distal paratracheal nodes. 3. No evidence of pneumothorax Chest CT 02/27/18 10:39 Impression: 1. No evidence of rib fracture or chest wall abnormality. 2. Calcified granulomas on the right with calcified right distal paratracheal lymph nodes are once again present. 3. Moderate atherosclerotic calcifications associated with the coronary arteries. 4. Hepatic steatosis noted. Findings discussed with Serge Arellano MD at 11:16 hour, 02/27/2018. Imaging: Discussed imaging studies w/ kennel aide Radiologist, I viewed and interpreted images myself Medications Given: Discontinued Medications Oxycodone/Acetaminophen (Percocet 5/325) 1 tab PO EDNOW ONE Stop: 02/27/18 10:43 Last Admin: 02/27/18 10:46 Dose: 1 tab General Time Seen by Provider: 02/27/18 10:10 Initial Vital Signs: Initial Vital Signs Temperature (C) 37.0 C 02/27/18 10:02 Heart Rate 69 02/27/18 10:02 Respiratory Rate 18 02/27/18 10:02 Blood Pressure 150/84 H 02/27/18 10:02 O2 Sat (%) 95 02/27/18 10:02 O2 Delivery Mode Room Air Allergies/Adverse Reactions: aspirin Allergy (Verified 02/23/18 12:23) GI irritation NSAIDS Allergy (Mild, Uncoded 07/21/14 13:44) Other-Enter Comments Home Medications: Medication Instructions Recorded Acetaminophen [Tylenol 325mg (*)] 325 mg PO DAILY PRN 02/23/18 Allopurinol [Allopurinol 100 MG 100 mg PO BID 02/23/18 (*)] Atorvastatin Calcium [Lipitor 20 20 mg PO DAILY18 02/23/18 mg (*)] Gemfibrozil [Lopid 600 MG (*)] 600 mg PO BIDAC 02/23/18 Multivitamins [Multivitamin (*)] 1 each PO DAILY 02/23/18 metFORMIN HCL [Glucophage 1000 mg] 1,000 mg PO BIDMEAL 02/23/18 Apixaban [Eliquis] 5 mg PO BID #60 tab 02/25/18 Pantoprazole Sodium [Protonix 40mg 40 mg PO DAILY #30 tab 02/25/18 (*)] Losartan Potassium 02/27/18 oxyCODONE/APAP 5/325 [Percocet 1 - 2 tab PO Q4H PRN #14 tab 02/27/18 5/325 (*)] Departure - Departure Disposition: Home, Routine, Self-Care Clinical Impression: Rib fractures Condition: Good Instructions: Rib Fracture (ED) Additional Instructions: 1. Take Percocet as prescribed when needed for severe pain. This medication can make you drowsy, do not use while driving. 2. Cold pack or heating pad applied to sore areas intermittently may be helpful for pain. 3. Use incentive spirometer as directed. 4. Follow up with your primary care provider for unimproved symptoms over the next couple weeks. It can take several weeks for rib fractures to heal. 5. Return to the ED for worsening of condition. Referrals: Adrien Fenton MD [Medical Doctor] - As per Instructions Prescriptions: oxyCODONE/APAP 5/325 [Percocet 5/325 (*)] 1 - 2 tab PO Q4H PRN #14 tab PRN Reason: Pain, Severe Report Scribed for: Serge Arellano Report Scribed by: Robina Leach Date of Report: 02/27/18 Time of Report: 10:47 Physician Review and Approval Statement: Portions of this note were transcribed by an ED scribe. I personally performed the history, physical exam, and medical decision making; and confirm the accuracy of the information in the transcribed note.
[2018-02-27 12:07] VITALS: BP 153/77
== END 2018-02-27 12:07 | disposition home or self-care (01) ==
DX: S22.42XA Multiple fractures of ribs, left side, initial encounter for closed fracture (principal); I10 Essential (primary) hypertension; E11.9 Type 2 diabetes mellitus without complications; Z79.84 Long term (current) use of oral hypoglycemic drugs; X58.XXXA Exposure to other specified factors, initial encounter

== ENCOUNTER → 2018-03-03 | Outpatient (CLI) | payer OTHER, MEDICARE | LOC: BHFA 09:00 | PROVIDERS: ATTEND Internal Medicine Cardiovascular Disease | DX: I48.92 Unspecified atrial flutter (principal); R06.02 Shortness of breath ==

== ENCOUNTER → 2018-04-30 | Outpatient (CLI) | payer OTHER, MEDICARE | LOC: BHFA 08:30 | PROVIDERS: ATTEND Internal Medicine Cardiovascular Disease | DX: I48.91 Unspecified atrial fibrillation (principal); I48.92 Unspecified atrial flutter | CPT/HCPCS: 78452; 93017; 93225; 93226; A9500; J2785 ==